=== PATIENT | male | born 1990 | race Hispanic/Latino ===

== ENCOUNTER 2017-06-05 05:30 | Emergency (ER) | payer OTHER ==
[2017-06-05] MEDS ORDERED: ATIVAN IM PRN (06:49)
--- NOTE | 2017-06-05 06:55 | Emergency Department Report ---
ED Psych HPI - General Chief Complaint: Psych Stated Complaint: SUICIDAL Time Seen by Provider: 06/05/17 06:48 Source: patient, EMS, RN notes reviewed Mode of arrival: Stretcher Limitations: No Limitations - History of Present Illness Initial Comments: This is a 27-year-old male. He is previously unknown to me. He reports a past medical history of depression and suicidality with prior history of psychiatric hospitalizations. He reports he is not taking any long-term psychiatric medications. He is brought to the hospital by EMS complaining of suicidality. He reports "nobody cares about me." His symptoms are constant. He is not having hallucinations, he denies intentional overdose, he is evasive about having access to guns and firearms. Denies headache, neck pain, chest pain, abdominal pain, shortness of breath, irritative and obstructive urinary symptoms. MD Complaint: suicidal ideation, feels depressed -: Gradual Associated Psychiatric Symptoms: depression, suicidal ideation History of same: Yes Quality: constant Context: significant life stressor Associated Symptoms: denies other symptoms If Self Harm: admits thoughts of - Related Data Home Medications Medication Instructions Recorded Confirmed Last Taken Penicillin Vk 500 mg PO DAILY 06/05/17 06/05/17 Unknown Allergies Allergy/AdvReac Type Severity Reaction Status Date / Time diphenhydramine HCl AdvReac Unknown Verified 06/05/17 12:55 [From [facility]] ED Review of Systems ROS: Stated complaint: SUICIDAL Other details as noted in HPI Constitutional: denies: fever Eyes: denies: eye discharge ENT: denies: epistaxis Respiratory: denies: cough Cardiovascular: denies: chest pain Gastrointestinal: denies: abdominal pain Genitourinary: denies: dysuria Musculoskeletal: denies: back pain Skin: denies: lesions Neurological: denies: weakness Psychiatric: as per HPI ED Past Medical Hx - Past Medical History Previous Medical History?: No - Surgical History Past Surgical History?: No - Social History Smoking Status: Current Every Day Smoker Substance Use Type: None - Medications Home Medications: Home Medications Medication Instructions Recorded Confirmed Last Taken Type Penicillin Vk 500 mg PO DAILY 06/05/17 06/05/17 Unknown History ED Physical Exam - General Limitations: No Limitations General appearance: alert, in no apparent distress - Head Head exam: Present: atraumatic, normocephalic - Eye Eye exam: Present: normal appearance, PERRL, EOMI, other (visual acuity intact to finger counting, color perception, reading at a close distance). Absent: nystagmus - ENT ENT exam: Present: normal exam, normal orophraynx, mucous membranes moist, normal external ear exam - Neck Neck exam: Present: normal inspection, full ROM. Absent: tenderness, meningismus - Respiratory Respiratory exam: Present: normal lung sounds bilaterally. Absent: respiratory distress, wheezes, rales, rhonchi, stridor, chest wall tenderness - Cardiovascular Cardiovascular Exam: Present: regular rate, normal rhythm, normal heart sounds. Absent: bradycardia, tachycardia, irregular rhythm, systolic murmur, diastolic murmur, rubs, gallop - GI/Abdominal GI/Abdominal exam: Present: soft, normal bowel sounds. Absent: distended, tenderness, guarding, rebound, rigid, pulsatile mass - Rectal Rectal exam: Present: deferred - Extremities Exam Extremities exam: Present: normal inspection, full ROM, normal capillary refill. Absent: pedal edema, joint swelling, calf tenderness - Back Exam Back exam: Present: normal inspection, full ROM. Absent: tenderness, CVA tenderness (R), CVA tenderness (L), muscle spasm, paraspinal tenderness, vertebral tenderness - Neurological Exam Neurological exam: Present: alert, oriented X3, normal gait, other (Extraocular movements intact. Tongue midline. No facial droop. Facial sensation intact to light touch in the V1, V2, V3 distribution bilaterally. 5 and 5 strength in 4 extremities.. Sensation is intact to light touch in 4 extremities.). Absent : motor sensory deficit - Psychiatric Psychiatric exam: Present: depressed, suicidal ideation. Absent: homicidal ideation - Skin Skin exam: Present: warm, rash (patient has multiple punctate lesions on his body. Consistent/suggestive of insect bites) ED Course Vital Signs 06/05/17 06:14 Temperature 98.2 F Pulse Rate 75 Respiratory 18 Rate Blood Pressure 118/76 O2 Sat by Pulse 99 Oximetry ED Medical Decision Making - Lab Data Result diagrams: 06/05/17 07:06 06/05/17 07:06 Vital Signs 06/05/17 06:14 Temperature 98.2 F Pulse Rate 75 Respiratory 18 Rate Blood Pressure 118/76 O2 Sat by Pulse 99 Oximetry Lab Results 06/05/17 06/05/17 06/05/17 Range/Units 07:06 07:06 07:06 WBC 7.9 (4.5-11.0) K/mm3 RBC 4.55 (3.65-5.03) M/mm3 Hgb 14.3 (11.8-15.2) gm/dl Hct 43.1 (35.5-45.6) % MCV 95 H (84-94) fl MCH 32 (28-32) pg MCHC 33 (32-34) % RDW 13.2 (13.2-15.2) % Plt Count 276 (140-440) K/mm3 Sodium 141 (137-145) mmol/L Potassium 3.9 (3.6-5.0) mmol/L Chloride 103.1 (98-107) mmol/L Carbon Dioxide 25 (22-30) mmol/L Anion Gap 17 mmol/L BUN 8 L (9-20) mg/dL Creatinine 0.9 (0.8-1.5) mg/dL Estimated GFR > 60 ml/min BUN/Creatinine Ratio 8.88 % Glucose 94 (75-100) mg/dL Calcium 9.0 (8.4-10.2) mg/dL Total Creatine Kinase 129 (55-170) units/L Salicylates < 0.3 L (2.8-20.0) mg/dL Acetaminophen (10.0-30.0) ug/mL Plasma/Serum Alcohol (0-0.07) gm% 06/05/17 06/05/17 Range/Units 07:06 07:06 WBC (4.5-11.0) K/mm3 RBC (3.65-5.03) M/mm3 Hgb (11.8-15.2) gm/dl Hct (35.5-45.6) % MCV (84-94) fl MCH (28-32) pg MCHC (32-34) % RDW (13.2-15.2) % Plt Count (140-440) K/mm3 Sodium (137-145) mmol/L Potassium (3.6-5.0) mmol/L Chloride (98-107) mmol/L Carbon Dioxide (22-30) mmol/L Anion Gap mmol/L BUN (9-20) mg/dL Creatinine (0.8-1.5) mg/dL Estimated GFR ml/min BUN/Creatinine Ratio % Glucose (75-100) mg/dL Calcium (8.4-10.2) mg/dL Total Creatine Kinase (55-170) units/L Salicylates (2.8-20.0) mg/dL Acetaminophen < 15.0 (10.0-30.0) ug/mL Plasma/Serum Alcohol < 0.01 (0-0.07) gm% - Medical Decision Making Differential diagnosis: Insect bites, mood disorder, suicidality, medical clearance for psychiatric placement Assessment and plan: 27-year-old male with depression and suicidality, requires 1013. He has a GCS of 15, with an NIH score of 0. His serum toxicology study is unremarkable. Multiple insect bites do not appear to be superinfected, no obvious evidence of active insect infestation. He will be given permethrin. At this point in time, there is no immediate medical contraindication to psychiatric admission/evaluation and consultation. Critical care attestation.: If time is entered above; I have spent that time in minutes in the direct care of this critically ill patient, excluding procedure time. ED Disposition Clinical Impression: Mood disorder Disposition: DC/TX-65 PSY HOSP/PSY UNIT Is pt being admited?: No Does the pt Need Aspirin: No Condition: Good Referrals: PRIMARY CARE, [Primary Care Provider] - 3-5 Days
[2017-06-05 07:40] LABS: Anion Gap 17 mmol/L; BUN/Creatinine Ratio 8.88; Blood Urea Nitrogen 8 mg/dL (9-20); Carbon Dioxide 25 mmol/L (22-30); Chloride 103.1 mmol/L (98-107); Creatine Kinase 129 units/L (55-170); Glucose 94 mg/dL (75-100); Potassium 3.9 mmol/L (3.6-5.0); Sodium 141 mmol/L (137-145)
[2017-06-05 07:51] LABS: Hematocrit 43.1 % (35.5-45.6); Hemoglobin 14.3 gm/dl (11.8-15.2); Mean Corpuscular HGB Conc 33 % (32-34); Mean Corpuscular Hemoglobin 32 pg (28-32); Mean Corpuscular Volume 95 fl (84-94); Platelet Count 276 K/mm3 (140-440); Red Blood Count 4.55 M/mm3 (3.65-5.03); Red Cell Distribution Width 13.2 % (13.2-15.2); White Blood Count 7.9 K/mm3 (4.5-11.0)
[2017-06-05] MEDS ORDERED: ACTICIN TP ONE (07:53)
[2017-06-05 09:14] LABS: Urine Drugs of Abuse Note Disclamer
[2017-06-05 09:33] LABS: Bacteria,Urine 1+ /HPF (Negative); Bilirubin,Urine NEG (Negative); Blood,Urine NEG (Negative); Ketones,Urine NEG (Negative); Leukocyte Esterase,Urine NEG (Negative); Mucus,Urine 3+ /HPF; Nitrite,Urine NEG (Negative); Urobilinogen,Urine < 2.0 mg/dL (<2.0)
--- NOTE | 2017-06-05 14:45 | Consultation ---
History of Present Illness - Reason for Consult Consult date: 06/05/17 Reason for consult: Mental Health Evaluation Requesting physician: NICK SINHA - Chief Complaint Chief complaint: "I know my rights" - History of Present Psychiatric Illness This is a 27-year-old male. He reports a past medical history of depression and suicidality with prior history of psychiatric hospitalizations. Today patient is uncooperative during the assessment. He stated that he isn't suicidal/ homicidal and never was. He stated being hospitalized at [facility]. He stated that he knew his rights and would be leaving the hospital in 72 hours. He refused to answer any more of my questions. ER Doctor's note - He is brought to the hospital by EMS complaining of suicidality. He reports "nobody cares about me." His symptoms are constant. He is not having hallucinations, he denies intentional overdose, he is evasive about having access to guns and firearms. Medications and Allergies Allergies Allergy/AdvReac Type Severity Reaction Status Date / Time diphenhydramine HCl AdvReac Unknown Verified 06/05/17 12:55 [From [facility]] Home Medications Medication Instructions Recorded Confirmed Last Taken Type Penicillin Vk 500 mg PO DAILY 06/05/17 06/05/17 Unknown History Active Meds: Active Medications Lorazepam (Ativan) 2 mg IM Q4HR PRN PRN Reason: Agitation Past psychiatric history - Past Medical History Past Medical History: No medical history Past Surgical History: No surgical history - past Psychiatric treatment and history Psych: Depression psychiatric treatment history: Multiple inpatient psy settings. Unable to obtain information. - Social History Social history: other (unable to obtain information) Mental Status Exam - Vital signs Last Vital Signs Temp 98.2 F 06/05/17 06:14 Pulse 75 06/05/17 06:14 Resp 18 06/05/17 06:14 BP 118/76 06/05/17 06:14 Pulse Ox 99 06/05/17 06:14 - Exam Narrative exam: ROS: Hx of Depression MSE: Appearance: uncooperative Behavior: regular eye contact Speech: regular rate and tone Mood: "nothing is wrong with me" Affect: congruent to mood Thought Process: circumstantial Thought Content: denies SI/HI's and no gestures of AVH's Motor Activity: ambulatory Cognition: A/Ox 3 Insight: variable Judgment: variable Results Result Diagrams: 06/05/17 07:06 06/05/17 07:06 Abnormal lab results 06/05/17 06/05/17 06/05/17 Range/Units 07:06 07:06 07:06 MCV 95 H (84-94) fl BUN 8 L (9-20) mg/dL Salicylates < 0.3 L (2.8-20.0) mg/dL All other labs normal. Assessment and Plan Assessment and plan: Impression: Historical Dx: Depression. Substance Use DO (marijuana). Today patient is uncooperative and elusive during the assessment. DDx: R/O Bipolar Recommendation/Plan: Continue 1013 with placement to inpatient psy services. Start Prozac 20 mg PO daily for depression. Discusses possible suicidality/ medication induced saul with patient reference Prozac.
[2017-06-05] MEDS: PROzac PO SCH (16:20)
[2017-06-06] MEDS: PROzac PO SCH (09:43)
[2017-06-06 12:06] VITALS: BP 121/70
--- NOTE | 2017-06-06 12:50 | Progress Note ---
Subjective - Reason for Consult Consult date: 06/06/17 Reason for consult: Psychiatry Follow-up - Chief Complaint Chief complaint: "I lied about being suicidal" This is a 27-year-old male. He reports a past medical history of depression and suicidality with prior history of psychiatric hospitalizations. Today patient is calm and cooperative during the assessment. He stated that he came to the hospital because he is homeless and need somewhere to stay. He stated that he told the RN in triage that he was "suicidal." He stated that was a poor choice and regret that he made that statement. He does admit to a hx of depression. He denies SI/HI's, AVH's, and depression. He denies any side effects of his medications. Mental Status Exam - Vital signs Last Vital Signs Temp 98.4 F 06/06/17 10:00 Pulse 74 06/06/17 10:00 Resp 18 06/06/17 10:00 BP 121/70 06/06/17 10:00 Pulse Ox 100 06/06/17 10:00 - Exam Narrative exam: MSE: Appearance: calm, cooperative Behavior: regular eye contact Speech: regular rate and tone Mood: "okay" Affect: congruent to mood Thought Process: linear Thought Content: denies SI/HI's and AVH's Motor Activity: ambulatory Cognition: A/Ox 3 Insight: fair Judgment: fair Assessment and Plan Impression: Historical Dx: Depression. Substance Use DO (marijuana). Today patient is calm and cooperative during the assessment. Patient is no threat to self. Spoke with his uncle Keenan Villafana [phone]. He stated that he will picker packer his nephew (the patient) once discharged. He also stated that his nephew can stay with him at his home. Recommendation/Plan: Rescind 1013. Continue Prozac 20 mg PO daily for depression. Discusses possible suicidality/medication induced saul with patient reference Prozac. Patient can follow-up at [facility] for outpatient psy services.
--- NOTE | 2017-06-06 13:15 | Event Note ---
Date: 06/06/17 The patient is seen and examined. He is not homicidal or suicidal at this time. He has no complaints at this time. He is alert and oriented 3, with a GCS of 15, and an NIH score of 0. Psychiatry has recommended discontinuation of his 1013, and they have done so already. Patient is going to be discharged with outpatient resources. Return precautions are reviewed. The psychiatry team recommends Prozac, and the patient will be given a 1 week supply. Vital Signs 06/05/17 06/05/17 06/06/17 06:14 20:45 02:14 Temperature 98.2 F 98 F 98 F Pulse Rate 75 88 62 Respiratory 18 20 18 Rate Blood Pressure 118/76 Blood Pressure 114/66 136/75 [Left] O2 Sat by Pulse 99 99 97 Oximetry 06/06/17 06/06/17 06:49 10:00 Temperature 98 F 98.4 F Pulse Rate 87 74 Respiratory 18 18 Rate Blood Pressure Blood Pressure 114/72 121/70 [Left] O2 Sat by Pulse 100 100 Oximetry Lab Results 06/05/17 06/05/17 06/05/17 Range/Units 07:06 07:06 07:06 WBC 7.9 (4.5-11.0) K/mm3 RBC 4.55 (3.65-5.03) M/mm3 Hgb 14.3 (11.8-15.2) gm/dl Hct 43.1 (35.5-45.6) % MCV 95 H (84-94) fl MCH 32 (28-32) pg MCHC 33 (32-34) % RDW 13.2 (13.2-15.2) % Plt Count 276 (140-440) K/mm3 Sodium 141 (137-145) mmol/L Potassium 3.9 (3.6-5.0) mmol/L Chloride 103.1 (98-107) mmol/L Carbon Dioxide 25 (22-30) mmol/L Anion Gap 17 mmol/L BUN 8 L (9-20) mg/dL Creatinine 0.9 (0.8-1.5) mg/dL Estimated GFR > 60 ml/min BUN/Creatinine Ratio 8.88 % Glucose 94 (75-100) mg/dL Calcium 9.0 (8.4-10.2) mg/dL Total Creatine Kinase 129 (55-170) units/L Urine Color (Yellow) Urine Turbidity (Clear) Urine pH (5.0-7.0) Ur Specific [place] (1.003-1.030) Urine Protein (Negative) mg/dL Urine Glucose (UA) (Negative) mg/dL Urine Ketones (Negative) mg/dL Urine Blood (Negative) Urine Nitrite (Negative) Urine Bilirubin (Negative) Urine Urobilinogen (<2.0) mg/dL Ur Leukocyte Esterase (Negative) Urine WBC (Auto) (0.0-6.0) /HPF Urine RBC (Auto) (0.0-6.0) /HPF Urine Bacteria (Auto) (Negative) /HPF Urine Mucus /HPF Salicylates < 0.3 L (2.8-20.0) mg/dL Urine Opiates Screen Urine Methadone Screen Acetaminophen (10.0-30.0) ug/mL Ur Barbiturates Screen Ur Phencyclidine Scrn Ur Amphetamines Screen U Benzodiazepines Scrn Urine Cocaine Screen U Marijuana (THC) Screen Drugs of Abuse Note Plasma/Serum Alcohol (0-0.07) gm% 06/05/17 06/05/17 06/05/17 Range/Units 07:06 07:06 09:00 WBC (4.5-11.0) K/mm3 RBC (3.65-5.03) M/mm3 Hgb (11.8-15.2) gm/dl Hct (35.5-45.6) % MCV (84-94) fl MCH (28-32) pg MCHC (32-34) % RDW (13.2-15.2) % Plt Count (140-440) K/mm3 Sodium (137-145) mmol/L Potassium (3.6-5.0) mmol/L Chloride (98-107) mmol/L Carbon Dioxide (22-30) mmol/L Anion Gap mmol/L BUN (9-20) mg/dL Creatinine (0.8-1.5) mg/dL Estimated GFR ml/min BUN/Creatinine Ratio % Glucose (75-100) mg/dL Calcium (8.4-10.2) mg/dL Total Creatine Kinase (55-170) units/L Urine Color (Yellow) Urine Turbidity (Clear) Urine pH (5.0-7.0) Ur Specific [place] (1.003-1.030) Urine Protein (Negative) mg/dL Urine Glucose (UA) (Negative) mg/dL Urine Ketones (Negative) mg/dL Urine Blood (Negative) Urine Nitrite (Negative) Urine Bilirubin (Negative) Urine Urobilinogen (<2.0) mg/dL Ur Leukocyte Esterase (Negative) Urine WBC (Auto) (0.0-6.0) /HPF Urine RBC (Auto) (0.0-6.0) /HPF Urine Bacteria (Auto) (Negative) /HPF Urine Mucus /HPF Salicylates (2.8-20.0) mg/dL Urine Opiates Screen Presumptive negative Urine Methadone Screen Presumptive negative Acetaminophen < 15.0 (10.0-30.0) ug/mL Ur Barbiturates Screen Presumptive negative Ur Phencyclidine Scrn Presumptive negative Ur Amphetamines Screen Presumptive negative U Benzodiazepines Scrn Presumptive negative Urine Cocaine Screen Presumptive negative U Marijuana (THC) Screen Presumptive positive Drugs of Abuse Note Disclamer Plasma/Serum Alcohol < 0.01 (0-0.07) gm% 06/05/17 Range/Units 09:05 WBC (4.5-11.0) K/mm3 RBC (3.65-5.03) M/mm3 Hgb (11.8-15.2) gm/dl Hct (35.5-45.6) % MCV (84-94) fl MCH (28-32) pg MCHC (32-34) % RDW (13.2-15.2) % Plt Count (140-440) K/mm3 Sodium (137-145) mmol/L Potassium (3.6-5.0) mmol/L Chloride (98-107) mmol/L Carbon Dioxide (22-30) mmol/L Anion Gap mmol/L BUN (9-20) mg/dL Creatinine (0.8-1.5) mg/dL Estimated GFR ml/min BUN/Creatinine Ratio % Glucose (75-100) mg/dL Calcium (8.4-10.2) mg/dL Total Creatine Kinase (55-170) units/L Urine Color Yellow (Yellow) Urine Turbidity Clear (Clear) Urine pH 5.0 (5.0-7.0) Ur Specific [place] 1.028 (1.003-1.030) Urine Protein 30 mg/dl (Negative) mg/dL Urine Glucose (UA) Neg (Negative) mg/dL Urine Ketones Neg (Negative) mg/dL Urine Blood Neg (Negative) Urine Nitrite Neg (Negative) Urine Bilirubin Neg (Negative) Urine Urobilinogen < 2.0 (<2.0) mg/dL Ur Leukocyte Esterase Neg (Negative) Urine WBC (Auto) 3.0 (0.0-6.0) /HPF Urine RBC (Auto) 2.0 (0.0-6.0) /HPF Urine Bacteria (Auto) 1+ (Negative) /HPF Urine Mucus 3+ /HPF Salicylates (2.8-20.0) mg/dL Urine Opiates Screen Urine Methadone Screen Acetaminophen (10.0-30.0) ug/mL Ur Barbiturates Screen Ur Phencyclidine Scrn Ur Amphetamines Screen U Benzodiazepines Scrn Urine Cocaine Screen U Marijuana (THC) Screen Drugs of Abuse Note Plasma/Serum Alcohol (0-0.07) gm%
== END 2017-06-06 13:42 | disposition home or self-care (01) ==
LOC: ED 05:30 → EEVIPCON 05:30 → ED 06-06 13:42
DX: F39 Unspecified mood [affective] disorder (principal); F17.200 Nicotine dependence, unspecified, uncomplicated; Z88.8 Allergy status to other drugs, medicaments and biological substances
CPT/HCPCS: 36415; 80048; 80307; 81001; 82550; 85027; 99284; G0480; 80320